=== PATIENT | female | born 1970 | race Native Hawaiian/Other Pacific Islander ===

== ENCOUNTER 2018-06-09 13:27 | Emergency (ER) | payer BC ==
[~2018-06-09] VITALS: Ht 160 cm; Wt 93.9 kg
[2018-06-09] MEDS ORDERED: LEVO0.0529 PO (13:43)
[2018-06-09 14:53] VITALS: BP 132/72; TEMP 97.8
== END 2018-06-09 14:55 | disposition home or self-care (01) ==
LOC: ED 13:27
PROC: 0HQGXZZ Repair Left Hand Skin, External Approach (ICD-10-PCS; principal; 2018-06-09)
DX: S61.215A Laceration without foreign body of left ring finger without damage to nail, initial encounter (principal); W45.8XXA Other foreign body or object entering through skin, initial encounter
CPT/HCPCS: 90715; 99282

== ENCOUNTER 2018-08-31 15:33 | Outpatient (CLI) | payer BC ==
[~2018-08-31 15:33] MED LIST: LEVO0.0529 PO
== END 2018-08-31 21:54 | disposition home or self-care (01) ==
LOC: LAB 15:33
DX: R30.0 Dysuria (principal); N30.90 Cystitis, unspecified without hematuria
CPT/HCPCS: 87077; 87086; 87088; 87186

== ENCOUNTER 2019-02-25 11:11 | Outpatient (CLI) | payer BC | END 2019-02-25 19:28 | disposition home or self-care (01) | LOC: MAMMO 11:11 | DX: Z12.31 Encounter for screening mammogram for malignant neoplasm of breast (principal) ==

== ENCOUNTER 2019-06-07 07:21 | Outpatient (CLI) | payer BC ==
[2019-06-07 07:58] LABS: PLATELET COUNT 363 K/uL (152-353)
== END 2019-06-07 23:35 | disposition home or self-care (01) ==
LOC: LABW 07:21
PROVIDERS: Physician Assistant
DX: E78.1 Pure hyperglyceridemia (principal); R79.89 Other specified abnormal findings of blood chemistry; D47.3 Essential (hemorrhagic) thrombocythemia; E03.9 Hypothyroidism, unspecified
CPT/HCPCS: 36415; 80061; 82306; 84439; 84443; 85027

== ENCOUNTER 2022-02-16 10:25 | Outpatient (CLI) | payer OTHER | END 2022-02-16 19:17 | disposition home or self-care (01) | LOC: US 10:25 | PROVIDERS: ATTEND Nurse Practitioner Family | DX: E03.8 Other specified hypothyroidism (principal); E04.2 Nontoxic multinodular goiter ==